=== PATIENT | female | born 1950 | race Caucasian/White ===

== ENCOUNTER → 2016-12-03 | Outpatient (CLI) | payer OTHER, BC ==
[~2016-12-03] MED LIST: ASPCH81X PO; CALCTAB5 PO; ESOM20CA PO; LEVO137T3 PO; OMEG10007 PO
--- NOTE | 2016-12-03 13:04 | MAMMOGRAPHY REPORT ---
BILATERAL DIGITAL SCREENING MAMMOGRAM WITH CAD: 12/03/2016 CLINICAL HISTORY: Routine screening. Patient has no complaints. TECHNIQUE: Current study was also evaluated with a Computer Aided Detection (CAD) system. Bilatera l CC and MLO views were obtained. COMPARISON: Comparison is made to exams dated: 09/26/2014 mammogram, 09/25/2013 mammogram, 09/23/2012 m ammogram, 09/22/2011 mammogram, 09/17/2010 mammogram, and 09/11/2009 mammogram - [facility] nt. BREAST COMPOSITION: There are scattered areas of fibroglandular density in both breasts. FINDINGS: No suspicious masses, calcifications, or areas of architectural distortion are noted in e ither breast. There has been no significant interval change compared to prior exams. IMPRESSION: ACR BI-RADS CATEGORY 1: NEGATIVE There is no mammographic evidence of malignancy. A 1 year screening mammogram is recommended. The p atient will receive written notification of the results. Approximately 10% of breast cancers are not detected with mammography. A negative mammographic repor t should not delay biopsy if a clinically suggestive mass is present. Martha Song M.D. /:12/03/2016 11:26:35 Product/Device Technologist: Zoë BAÑUELOS(Alejandra)(M), [facility] letter sent: Normal 1/2 BI-RADS Code: ACR BI-RADS Category 1: Negative
== END | disposition home or self-care (01) ==
LOC: C.MAMM 10:38
PROVIDERS: ATTEND Obstetrics & Gynecology
DX: Z12.31 Encounter for screening mammogram for malignant neoplasm of breast (principal)

== ENCOUNTER → 2017-02-22 | Outpatient (CLI) | payer OTHER, BC | END | disposition home or self-care (01) | LOC: C.PAPS 15:40 | PROVIDERS: ATTEND Obstetrics & Gynecology | DX: Z01.419 Encounter for gynecological examination (general) (routine) without abnormal findings (principal) ==

== ENCOUNTER → 2017-12-28 | Outpatient (CLI) | payer OTHER, BC ==
--- NOTE | 2017-12-29 15:23 | MAMMOGRAPHY REPORT ---
BILATERAL DIGITAL SCREENING MAMMOGRAM TOMOSYNTHESIS WITH CAD: 12/28/2017 CLINICAL HISTORY: Routine screening. Patient has no complaints. TECHNIQUE: Breast tomosynthesis in addition to standard 2D mammography was performed. Current study was also evaluated with a Computer Aided Detection (CAD) system. COMPARISON: Comparison is made to exams dated: 12/03/2016 mammogram, 10/01/2015 mammogram, 09/26/2014 m ammogram, 09/25/2013 mammogram, 09/23/2012 mammogram, and 09/22/2011 mammogram - [facility]. BREAST COMPOSITION: There are scattered areas of fibroglandular density in both breasts. FINDINGS: No suspicious mass, architectural distortion or cluster of microcalcifications is seen. T here are stable asymmetries in the lateral left breast and inferior right breast. IMPRESSION: ACR BI-RADS CATEGORY 1: NEGATIVE There is no mammographic evidence of malignancy. A 1 year screening mammogram is recommended. The pa tient will receive written notification of the results. Approximately 10% of breast cancers are not detected with mammography. A negative mammographic report should not delay biopsy if a clinically suggestive mass is present. Mirian Torres M.D. ay/:12/28/2017 16:09:24 Blasting Worker: Gi BAÑUELOS(Alejandra)(M), [facility] letter sent: Normal 1/2 BI-RADS Code: ACR BI-RADS Category 1: Negative
== END | disposition home or self-care (01) ==
LOC: C.MAMM 13:40
PROVIDERS: ATTEND Obstetrics & Gynecology
DX: Z12.31 Encounter for screening mammogram for malignant neoplasm of breast (principal)

== ENCOUNTER 2023-11-15 11:35 | Observation (INO) ==
--- NOTE | 2023-11-11 11:57 | Anesthesiology Consultation ---
Date of Service November 11, 2023 Assessment & Plan (1) Encounter for pre-operative examination: Chart Review Chart Review: Acceptable Risk for Surgery and Patient NOT seen in Pre Admission Testing Will order ECG stat on arrival. Consults Requested none History Surgery Operation Date: 11/15/23 13:00 Proposed Procedures p Right Proximal Humerus Open Reduction Internal Fixation - Raciel Amandeep Mehta MD Height/Weight Height: 5 ft 9.5 in Weight: 104.326 kg Allergies Allergy/AdvReac Type Severity Reaction Status Date / Time No Known Allergies Allergy Verified 11/11/23 10:04 Medications Home Medications Medication Instructions Recorded Confirmed Last Taken esomeprazole magnesium 20 mg 20 mg PO QAM 11/14/18 11/11/23 04/27/22 09:00 capsule,delayed release (Nexium 24HR) fluorouracil 0.5 % topical cream 1 applic topical UD PRN PER 03/11/20 11/11/23 11/04/20 (Carac) DERMATOLOGY tacrolimus 0.1 % topical ointment 1 applic topical UD PRN PSORIASIS 03/11/20 11/11/23 04/27/22 10:00 anastrozole 1 mg tablet 1 mg PO HS 10/20/22 11/11/23 Unknown naproxen sodium 220 mg capsule 220 mg PO BID PRN Pain 04/12/23 11/11/23 Unknown (Aleve) levothyroxine 137 mcg capsule 137 mcg PO QPM #90 caps 04/22/23 11/11/23 Unknown diphth,pertus(acell),tetanus 2.5 0.5 ml IM ONCE #0.5 mL 05/17/23 11/11/23 Unknown Lf unit-8 mcg-5 Lf/0.5mL IM syringe (Boostrix Tdap) multivitamin (Multiple Vitamins 1 tab PO QAM 05/17/23 11/11/23 Unknown tablet) pravastatin 10 mg tablet 10 mg PO HS #90 tabs 07/12/23 11/11/23 Unknown betamethasone dipropionate 0.05 % 1 applic topical BID PRN psoriasis 11/10/23 11/11/23 Unknown topical cream cholecalciferol (vitamin D3) 50 50 mcg PO QAM 11/10/23 11/11/23 Unknown mcg (2,000 unit) capsule (Vitamin D3) diphenhydramine 25 2 tab PO HS PRN Pain 11/10/23 11/11/23 Unknown mg-acetaminophen 500 mg tablet (Tylenol PM Extra Strength) Past Medical History Medical History Hx of squamous cell carcinoma Psoriasis 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 Daughter No problems noted. Other Family history of Prinzmetal angina No family history of adverse response to anesthesia Denies family history of Ovarian cancer Prostate cancer Diabetes Lung cancer Stroke Past Surgical History Surgical History Hx of squamous cell carcinoma excision left lower leg History of lumpectomy of left breast (04/28/22) + [place] Lymph Node Biopsy Dr. Leoncio Bland at [facility] History of breast biopsy (04/08/22) [facility] History of D&C History of cataract surgery bilat History of esophagogastroduodenoscopy (EGD) History of tooth extraction Hx of surgical procedure Excision of a right labial lesion > benign History of total left hip replacement H/O basal cell carcinoma excision from chest History of colonoscopy Colonoscopy 12/15/22, Repeat in 10 years 2032 Nausea and vomiting after administration of anesthetic agent History of tonsillectomy History of surgical procedure on mouth dental implants History of 2 sections History of cholecystectomy Social History Smoking Status: Never smoker Do You Dip or Chew Tobacco: No Hx Alcohol Use: Yes alcohol intake frequency: other Alcohol Intake Frequency Comment: once per month maybe Hx Substance Use: No substance use type: does not use Testing Laboratory Results Laboratory Tests 06/18/23 13:35 WBC 7.26 Hgb 12.6 Hct 38.2 Plt Count 257 Sodium 136 Potassium 4.5 Chloride 104 Carbon Dioxide 28 BUN 20 Creatinine 0.82 Glucose 101 H
[~2023-11-15 11:35] MED LIST changes: -ASPCH81X PO; +ATROPINE SULFATE 0.1 MG/ML 10ML SYR IV PRN; -CALCTAB5 PO; -ESOM20CA PO; +HYDROmorphone INJ 2 MG/ML SYR/VIAL IV PRN; -LEVO137T3 PO; +LIDOCAINE 2% 2 ML VIAL/AMP(20MG/ML) INFIL ONE; +MIDAZOLAM HCL 1 MG/ML 2ML VIAL ONE; -OMEG10007 PO; +ONDANSETRON INJ 2 MG/ML 2 ML VIAL IV PRN; +ONDANSETRON INJ 2 MG/ML 2 ML VIAL ONE; +PROPOFOL IV EMULSION 10 MG/ML 20 ML VIAL IV ONE; +ROCURONIUM BROMIDE 10 MG/ML 5 ML VIAL IV ONE; +ePHEDrine sulfate 50 MG/ML AMP IV PRN; +fentaNYL citrate PF 100 MCG/2 ML VIAL ONE
[2023-11-15] MEDS ORDERED: BUPIVACAINE 0.5 % 5 MG/1 ML PF 10ML VIAL ONE (12:11)
[2023-11-15] MEDS: LR 15ML/HR IV SCH (12:17)
--- NOTE | 2023-11-15 12:24 | Anesthesiology Consultation ---
Date of Service November 15, 2023 Assessment & Plan Chart Review Chart Review: Acceptable Risk for Surgery Consults Requested none ASA ASA3 Proposed Anesthesia Anesthesia Type: General Regional Laterality: Right Site: Interscalene Risk / Benefits Reviewed With: PT / POA / Parent / Guardian, Accepts Plan and Informed Consent Obtained History Surgery Operation Date: 11/15/23 13:00 Proposed Procedures p Right Proximal Humerus Open Reduction Internal Fixation - Raciel Amandeep Mehta MD Height/Weight Height: 5 ft 9.5 in Weight: 107.8 kg Allergies Allergy/AdvReac Type Severity Reaction Status Date / Time No Known Allergies Allergy Verified 11/15/23 12:02 Medications Home Medications Medication Instructions Recorded Confirmed Last Taken esomeprazole magnesium 20 mg 20 mg PO QAM 11/14/18 11/15/23 11/14/23 17:00 capsule,delayed release (Nexium 24HR) fluorouracil 0.5 % topical cream 1 applic topical UD PRN PER 03/11/20 11/15/23 11/04/20 ([facility]ac) DERMATOLOGY tacrolimus 0.1 % topical ointment 1 applic topical UD PRN PSORIASIS 03/11/20 11/15/23 11/14/23 21:00 anastrozole 1 mg tablet 1 mg PO HS 10/20/22 11/15/23 11/14/23 21:00 naproxen sodium 220 mg capsule 220 mg PO BID PRN Pain 04/12/23 11/15/23 Unknown (Aleve) levothyroxine 137 mcg capsule 137 mcg PO QPM #90 caps 04/22/23 11/15/23 11/14/23 21:00 diphth,pertus(acell),tetanus 2.5 0.5 ml IM ONCE #0.5 mL 05/17/23 11/11/23 Unknown Lf unit-8 mcg-5 Lf/0.5mL IM syringe (Boostrix Tdap) multivitamin (Multiple Vitamins 1 tab PO QAM 05/17/23 11/15/23 11/12/23 tablet) pravastatin 10 mg tablet 10 mg PO HS #90 tabs 07/12/23 11/15/23 11/14/23 21:00 betamethasone dipropionate 0.05 % 1 applic topical BID PRN psoriasis 11/10/23 11/15/23 11/15/23 07:00 topical cream cholecalciferol (vitamin D3) 50 50 mcg PO QAM 11/10/23 11/15/23 11/12/23 mcg (2,000 unit) capsule (Vitamin D3) diphenhydramine 25 2 tab PO HS PRN Pain 11/10/23 11/15/23 11/14/23 22:00 mg-acetaminophen 500 mg tablet (Tylenol PM Extra Strength) Active Medications Generic Name Dose Route Start Last Admin Trade Name Freq PRN Reason Stop Dose Admin Lactated Ringer's 1,000 mls @ 15 mls/hr 11/15/23 06:00 11/15/23 13:05 Lr IV 11/16/23 05:59 Infused .Q24H LANDEN Infusion NPO Date Last Intake of Fluids: 11/14/23 Time Last Intake of Fluids: 21:00 Date Last Intake of Solids: 11/14/23 Time Last Intake of Solids: 20:00 Past Medical History Medical History Hx of squamous cell carcinoma Psoriasis 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 Daughter No problems noted. Other Family history of Prinzmetal angina No family history of adverse response to anesthesia Denies family history of Ovarian cancer Prostate cancer Diabetes Lung cancer Stroke Past Surgical History Surgical History Hx of squamous cell carcinoma excision left lower leg History of lumpectomy of left breast (04/28/22) + [place] Lymph Node Biopsy Dr. Leoncio Bland at [facility] History of breast biopsy (04/08/22) [facility] History of D&C History of cataract surgery bilat History of esophagogastroduodenoscopy (EGD) History of tooth extraction Hx of surgical procedure Excision of a right labial lesion > benign History of total left hip replacement H/O basal cell carcinoma excision from chest History of colonoscopy Colonoscopy 12/15/22, Repeat in 10 years 2032 Nausea and vomiting after administration of anesthetic agent History of tonsillectomy History of surgical procedure on mouth dental implants History of 2 sections History of cholecystectomy Past Anesthesia History No Hx of Anesthesia Complications History of PONV No Hx of PONV Social History Smoking Status: Never smoker Do You Dip or Chew Tobacco: No Hx Alcohol Use: Yes alcohol intake frequency: other Alcohol Intake Frequency Comment: once per month maybe Hx Substance Use: No substance use type: does not use Physical Exam Vital Signs Last Vital Signs Temp 36.9 C 11/15/23 12:07 Pulse 65 11/15/23 12:07 Resp 20 11/15/23 12:07 BP 165/92 H 11/15/23 12:07 Pulse Ox 100 11/15/23 12:07 O2 Del Method Room Air 11/15/23 12:07 Constitutional no acute distress ENMT Thyromental Distance: > or= 3.5 Finger Breadths Mallampati Class: II Neck normal visual inspection Respiratory normal respiratory effort; no respiratory distress Auscultation: lungs clear to auscultation bilaterally Cardiovascular Rate/Rhythm: regular rate and regular rhythm Heart Sounds: no murmur Psychiatric Orientation: alert and oriented x 3 Testing Laboratory Results Blood Type O Positive 11/15/23 11:50 Antibody Screen NEGATIVE 11/15/23 11:50
--- NOTE | 2023-11-15 12:29 | History & Physical Bridge Note ---
Date of Service November 15, 2023 History & Physical Bridge Note I have examined the patient, reviewed the History & Physical and in the interval since the performance of the History & Physical I have noted the following changes of clinical significance: no changes noted
[2023-11-15] MEDS: ceFAZolin 2000MG 2,000 MG/15 ML SYR IV SCH ×3 (13:08→23:22)
[2023-11-15] MEDS ORDERED: DEXAMETHASONE SOD INJ 4 MG/ML VIAL ONE (13:33)
[2023-11-15] MEDS ORDERED: FAMOTIDINE/PF 20 MG/2 ML VIAL IV ONE (13:34)
[2023-11-15] MEDS ORDERED: PHENYLEPHRINE 100MCG/ML 10ML SYR IV ONE (14:00)
[2023-11-15] MEDS ORDERED: ePHEDrine sulfate 50 MG/5 ML SYR ONE ×2 (14:00→14:03)
[2023-11-15] MEDS: TRANEXAMIC ACID / 0.7% NACL 1000MG/100ML BAG IV ONE (14:31)
[2023-11-15] MEDS: TRANEXAMIC ACID 100 MG/ML 10 ML VIAL IV STA (14:38)
[2023-11-15] MEDS ORDERED: fentaNYL citrate PF 100 MCG/2 ML VIAL ONE ×2 (14:41→15:51)
[2023-11-15] MEDS ORDERED: ROCURONIUM BROMIDE 10 MG/ML 5 ML VIAL IV ONE (14:42)
[2023-11-15] MEDS ORDERED: SUGAMMADEX SODIUM 200 MG/2 ML VIAL IV ONE (16:48)
[2023-11-15] MEDS: BUPIVACAINE 0.5 % 5 MG/1 ML MPF 30ML VIAL ONE (16:49)
[2023-11-15] MEDS: LIDOCAINE 1%/EPINEPHRINE 1:100,000 20 ML VIAL ONE (16:49)
--- NOTE | 2023-11-15 17:08 | Post Operative Brief Note ---
Immediate Post Op Note v1 Date of Surgery November 15, 2023 Pre & Post Diagnosis Operation Date: 11/15/23 13:00 Pre-Op Diagnosis: Pright Proximal Humerus Fracture Post-Op Diagnosis: Pright Proximal Humerus Fracture I identified the patient and participated in the time-out.: Yes Procedure Operation Date: 11/15/23 13:00 Actual Procedures p Right Proximal Humerus Open Reduction Internal Fixation(Right) - Raciel Mehta MD Surgeon Raciel Mehta MD Inclusion Teacher A MD Tiffany Estimated Blood Loss 50 Findings Consistent with Post-Op Diagnosis Fluids 1500 cc Anesthesia Type General Regional Complications none
--- NOTE | 2023-11-15 17:10 | Operative Report ---
Post Operative Report Pre & Post Diagnosis Operation Date: 11/15/23 13:00 Pre-Op Diagnosis: Pright Proximal Humerus Fracture Post-Op Diagnosis: Pright Proximal Humerus Fracture I identified the patient and participated in the time-out.: Yes Procedure Operation Date: 11/15/23 13:00 Actual Procedures p Right Proximal Humerus Open Reduction Internal Fixation(Right) - Raciel Mehta MD Surgeon Raciel Mehta MD Pressurised Container Filler A MD Tiffany Estimated Blood Loss 50 Findings See Below Comminuted, displaced proximal humerus fracture Fluids 1500 cc Specimens n/a Anesthesia Type General Regional Complications none Indications The patient is a pleasant 73-year-old female, who fell fracturing their right proximal humerus. She failed conservative treatment as the fracture has displaced and surgical intervention were discussed. The risks of surgery include but not limited to: Infection, bleeding, nerve damage, need for repeat surgery, damage to nerves and arteries, mal-union, nonunion, decreased level of activity, deep vein thrombosis, heart attack, stroke, and . The patient wanted to proceed with surgery and the informed consent was signed. Description of Procedure IMPLANTS: 1) Standard 3 hole, 3.5 mm [place] Proximal Humerus Plate (Chubbies Shorts) 2) 3.5 mm Locking screws (26 x 3, 28 mm, 32, 38, 40 x 3, 45 mm). PROCEDURE: The patient was taken to the Operating Room and placed in the beach-chair position after administration of an interscalene block and general anesthesia. 2 g of intravenous Ancef were administered. The right shoulder was then prepped and draped in the standard sterile fashion. Sequential compression devices were placed in the legs. TXA 1 g was given pre-op and a second dose was given. The patient was identified and a multidisciplinary time-out identified the right shoulder as the correct shoulder and operative limb. First, the coracoid, acromion, clavicle, and planned deltopectoral incision were marked and then anesthetized with a 50:50 mixture of 1% lidocaine and 0.5% Marcaine with epinephrine. Sharp dissection was carried down to the deltopectoral interval. The cephalic vein was identified and protected laterally as was the deltoid. The deltopectoral interval was dissected to expose the clavipectoral fascia which was then incised. Blunt dissect was used to separate the deltoid from the humeral fracture fragments and rotator cuff. A Schuler retractor was placed beneath the deltoid muscle, exposing the fracture. The superior 1cm of the Pec major was released. The Tuberosities were tagged. The bursitis and hematoma were removed. The humeral shaft and humeral head were identified and freed up from each other. Any hematoma and callus were removed from the fracture ends with irrigation, rongeur, and dental pick. The wound was copiously irrigated. The humeral shaft fracture fragment was distracted while the humeral head was elevated and the humeral shaft was then internally rotated to reduce the proximal humeral fracture. Several k-wires were placed to provide temporary fixation. The Proximal Humerus plate was selected and held in place with a K wire. Fluoroscopy was brought in to ensure proper placement of the plate and near anatomic reduction. Once this was achieved, the screws were placed, starting with a 3.5 mm non-locking screw on the shaft in the oblong hole. The 3.5 locking screws were placed in 7 of the proximal portions of the plate, using fluoroscopy to ensure proper length screws into the humeral head. The 2 distal locking holes were also placed. The cortical screw was removed and replaced with a locking screw. The wounds were again copiously irrigated. The temporary k- wires were removed. The #1 Vicryl sutures used for tuberosities and traction on the humeral head fragment were placed through the holes along the edge of the plate and tied. Final x-rays were obtained. The wound was again copiously irrigated. The ROM of the shoulder had FF & abduction 160 degrees, ER 70 degrees, IR 40 degrees. The wound was copiously irrigated throughout the case. The deltopectoral interval was re-approximated with #1-Vicryl, the subcutaneous tissue was closed with 3-0 Vircyl, and the skin was closed with ZipLine and Shield. The wounds were dressed with sterile gauze, and Tegaderm. The patient was then transferred to the PACU in stable condition after application of a sling. POST-OP: The patient will be admitted overnight for observation. Patient will be seen by PT/OT and discharge planning. Pain medicine will be used as needed. Continue sling for comfort. I attest to the content of the Intraoperative Record and any orders documented therein. Any exceptions are noted below.
--- NOTE | 2023-11-15 17:41 | Operative Report ---
Post Operative Report Pre & Post Diagnosis Operation Date: 11/15/23 13:00 Pre-Op Diagnosis: Pright Proximal Humerus Fracture Post-Op Diagnosis: Pright Proximal Humerus Fracture I identified the patient and participated in the time-out.: Yes Procedure Operation Date: 11/15/23 13:00 Actual Procedures p Right Proximal Humerus Open Reduction Internal Fixation(Right) - Raciel Mehta MD Surgeon Raciel Mehta MD Locomotive Crane Operator Helper A MD Tiffany Estimated Blood Loss 50 Findings Consistent with Post-Op Diagnosis Same as postoperative diagnosis. Specimens None Description of Procedure Please see detailed operative note. I attest to the content of the Intraoperative Record and any orders documented therein. Any exceptions are noted below.
[2023-11-15] MEDS ORDERED: ePHEDrine sulfate 50 MG/ML AMP IV PRN (17:51)
[2023-11-15] MEDS ORDERED: ONDANSETRON INJ 2 MG/ML 2 ML VIAL IV PRN (17:53)
[2023-11-15] MEDS ORDERED: ATROPINE SULFATE 0.1 MG/ML 10ML SYR IV PRN (17:53)
[2023-11-15] MEDS: HYDROmorphone INJ 2 MG/ML SYR/VIAL IV PRN (18:00)
--- OUTSIDE RECORDS SUMMARY | 2023-11-15 18:55 | External Medical Summary | Continuity of Care Document ---
Author Name Unknown Organization [id number] Address [address] [place] [phone] Care Team Providers Care Business Continuity Management Director Name Role Phone ItzNhan lam Primary Care Physician [phone] [id number] Date(s): 11/10/23 - 11/10/23 [facility] [address] [facility] [address] [facility] [address] [place] [address] Encounter Diagnosis Proximal humerus fracture(Discharge Diagnosis) - 11/10/23 Discharge Disposition: Home or Self Care Attending Physician: MD Janine, Raciel A Allergies, Adverse Reactions, Alerts Substance Reaction Severity Status Pollen Active Immunizations Given and Recorded Vaccine Date Status Refusal Reason SARS-CoV-2 (COVID-19) mRNA-1273 vaccine 1 10/11/20 Recorded SARS-CoV-2 (COVID-19) mRNA-1273 vaccine 2 09/13/20 Recorded influenza virus vaccine, H1N1 3 07/24/09 Recorded hepatitis A adult vaccine 4 01/29/05 Recorded hepatitis A adult vaccine 5 07/17/04 Recorded tetanus toxoids-diphtheria, Td (Adult) 6 07/17/04 Recorded poliovirus vaccine, inactivated 7 07/17/04 Recorde d pneumococcal 23-valent vaccine 8 07/17/04 Recorded 1Result Comment: 2021-01-28: Historical information-source unspecified 2Result Comment: 2021-01-28: Historical information-source unspecified 3Result Comment: 2021-01-28: Historical information-source unspecified 4Result Comment: 2021-01-28: Historical information-source unspecified 5Result Comment: 2021-01-28: Historical information-source unspecified 6Result Comment: 2021-01-28: Historical information-source unspecified 7Result Comment: 2021-01-28: Historical information-source unspecified 8Result Comment: 2021-01-28: Historical information-source unspecified Medications anastrozole 1 mg oral tablet Start: 08/04/22 14:01:00 EST, 1 tab, PO, Daily Start Date: 08/04/22 Status: Ordered levothyroxine 137 mcg (0.137 mg) oral tablet Start: 04/11/13 13:26:00, 1 tab, PO, Daily Start Date: 04/11/13 Status: Ordered multivitamin Start: 04/11/13 13:27:00, 1 tab, PO, Daily Start Date: 04/11/13 Status: Ordered NexIUM Start: 10/15/15 11:04:00, 10 mg = Start Date: 10/15/15 Status: Ordered pravastatin 10 mg oral tablet Start: 06/14/20 12:52:00 EDT, 1 tab, PO, Daily Start Date: 06/14/20 Status: Ordered Vitamin D3 Start: 08/03/23 14:00:00 EST Start Date: 08/03/23 Status: Ordered Mental Status 11/10/23 Barriers to Learning one year None evide nt Mandatory Health Literacy Documentation Yes Health Literacy Communication Barriers N ever Primary Language Romansh Problem List Condition Confirmation Course Effective Dates Status Health St atus Informant Achilles tendonitis Confirmed Active Right Achilles tendinitis Confirmed Active Ankle pain Confirmed Active Arthritis of left hip Confirmed Active Humerus fracture 1 Confirmed Active Proximal humerus fracture Confirmed Active Heel pain Confirmed Active Pain in left hip Confirmed Active Status post total hip replacement, left Confirmed Active Ingrown left big toenail Confirmed Active Ingrown right big toenail Confirmed Active Preop examination Confirmed Active Plantar fasciitis, right Confirmed Active 1right Diagnosis Diagnosis Type Effective Dates Health Status Cl inical Service Informant Proximal humerus fracture Discharge Diagnosis 11/10/23 Procedures Procedure Date Related Diagnosis Body Site Status section Complete d Gallbladder Completed Vital Signs Most recent to oldest [Reference Range]: 1 Temperature [36.5-37.9 DegC] 36.5 DegC (11/10/23 10:54 AM) Heart Rate 70 bpm (11/10/23 10:54 AM) Blood Pressure 130/80mmHg (11/10/23 10:54 AM) Cuff Pulse Pressure 50 mmHg (11/10/23 10:54 AM) Social History Social History Type Response Smoking Status Never smoked cigaret pelon Sex Female Cardiology * Contributor_system, MUSE01: VERIFY, PERFORM Event Display: EKG Authored Date: Please click on link to see image. Ortho Outpt Note * MD Janine, Raciel A: MODIFY MD Janine, Raciel A: MODIFY, MODIFY, PERFORM Johnie Navarro: PERFORM Event Display: Ortho Outpt Note Authored Date: Name:DB KRUEGER Patient Number:[id number] :1950 Date of Service:11/10/2023 CHIEF COMPLAINT:Right arm f/u HPI: [id number] yearoldFebhavesh presents today forf/u of her humeral headfracture. She injured her humerus after tripping over and step, onto her kitchen floor.She has history of osteopenia. She has stage 0 breast cancer and lumpectomy. She had a DEXA scan done prior totaking anastrozole which showed osteopenia. She lives an active lifestyle and exercises frequently. Today she rats her pain a 4/10. PHYSICAL EXAM: Focusing on the patient's right upper extremity: 2+ radial pulse Sensation to light touch is intact distally Motor to the median, radial, ulnar, AIN, PIN, musculocutaneous nervesis intact. Minimal tenderness to palpation over the proximal humerus + Bruising in the upper arm RADIOGRAPHY: I reviewed x-rays taken 10/27/2023 , an AP and lateral of the right humerus which shows a surgical neck fracturethat isessentially non-displaced. There isgreater tuberosity fracture with <5 cm of displacement from the articular margin. I reviewed x-rays taken 11/04/2023, 3 views(2 AP, and a scapulary Y) of theright humerus which shows a surgical neck fracturethat isessentially non-displaced. There isgreater tuberosity fracture with <5 cm of displacement from the articular margin. One view shows slight progression of the angulationofthe neck fracture. The other 2 views show the fracture to beunchanged and impacted. The greater tuberosity fracture has improved alignment. I obtained and personally interpreted3 views (AP, Grashey, and scapular Y) of theright shoulderwhich shows a proximal humerus fracture that is displaced and an essentially non-displaced greater tuberosity fracture. IMPRESSION: 73 year old female with right 2 partproximal humerus fracture, surgical neck fracturewith increased displacement, greater tuberosity fracture,subsequent visit GOAL: Reduce pain PLAN: - I discussed with the patient that due to worsened alignment, there is a need to have surgical intervention for her right humerus fracture. I explained to the patient that I wish to have her fracture internally fixed rather than a reverse TSA done. I discussed with the patient the risks and benefits of the internal fixation as well as the risks and benefits of the reverse total shoulder. - The risks of surgery included but not limited to: malunion, Infection, bleeding, nerve damage, continued pain, progression of arthritis, stiffness, failure of the repair, failure of the hardware, and deep vein thrombosis. They would like to proceed with surgery and informed consent was signed amos open reduction and internal fixation Right proximal humerus. - I ordered a CT scan of the right humerus to further evaluate the bone condition. - They will speak with mysurgery medical scheduler and have a history and physical examination performed. - Patient should gain medical clearance for PCPand Oncologist to see if she can hold the anastrozole. - Ice shoulder as tolerated ATTESTATION: I, Johnie Navarro, scribing forand in the presence of, Raciel Mehta, on this date,11/10/2023 09:52:12. I, Dr. Mehta, saw and examined the patient with Johnie Navarro acting as my scribe. I reviewed thenote and agree with the documented findings and the plan of care I developed. Electronic Signature on File CC: Nir Thomas DO [facility] [address] [facility] [address] [facility] [address] * CC: Marion Segovia MD [facility] [address] [facility] [address] * CC: Jerrell Dias MD [address] [facility] [address] [facility] [address] * Electronically Reviewed/Signed by: Johnie Navarro Author Signature Dt/Tm:11/10/2023 10:55 AM Electronically Reviewed/Signed by: Johnie Navarro Cosigner Signature Dt/Tm: 11/10/2023 10:58 AM Electronically Reviewed/Signed by: Raciel A Bader, MD Cosigner Signature Dt/Tm: 11/10/2023 07:15 PM [facility] [employer] [facility] [address], [place] [address] DS Patient Care team information Care Team Personnel Name: MD Mobley Emil R Position: Referring Member Role: Primary Care Provider Address: Address: [address] [place] [address], [place] [address] [place] Care Team Related Persons Name: PHYLLIS KRUEGER Address: home [address] [place] [address], [place] [id number]
--- NOTE | 2023-11-15 19:19 | Fluoroscopy Report ---
FL humerus RT 2V CLINICAL HISTORY: Right proximal humerus ORIF TECHNIQUE: 3 views were obtained with the C-arm in the OR with the above procedure. Total fluoroscopy time was 21.6 seconds. Radiation dose was 1.87 mGy. Comparison: Comparison is made to shoulder radiograph 11/10/[address] shoulder 11/10/2023 FINDINGS/IMPRESSION: Intraoperative images were obtained of open reduction internal fixation of the h umeral fracture. Please correlate with intraoperative fluoroscopy and operative report. ACT 112: Negative or not required by law. Electronically signed by: Michael Call M.D. 11/15/2023 7:18 PM
--- NOTE | 2023-11-15 19:24 | Anesthesiology Progress Note ---
Date of Service November 15, 2023 Anesthesia Post Procedure Vital Signs Vital Signs: Temp Pulse Resp BP Pulse Ox O2 Del Method O2 Flow Rate 11/15/23 18:20 97.3 F L 87 15 142/67 H 99 Nasal Cannula 2 11/15/23 18:10 81 15 150/74 H 97 Oxymask 2 11/15/23 18:00 88 16 148/74 H 96 Oxymask 2 11/15/23 17:50 86 16 147/71 H 99 Oxymask 4 11/15/23 17:40 86 18 144/74 H 100 Oxymask 4 11/15/23 17:30 96.8 F L 93 H 14 134/73 96 Oxymask 6 11/15/23 12:07 98.4 F 65 20 165/92 H 100 Room Air Pain Intensity Right Shoulder: Pain Intensity: 3 Transfer of Care Handoff Completed per policy Notes Mental Status: alert / awake / arousable and participated in evaluation Patient Amnestic to Procedure: Yes Nausea / Vomiting: adequately controlled Pain: adequately controlled Airway Patency, RR, SpO2: stable & adequate BP & HR: stable & adequate Hydration State: stable & adequate Anesthetic Complications: no major complications apparent and Pt Satisfied with anesthetic care
[2023-11-15] MEDS ORDERED: HYDROmorphone INJ 1 MG/ML SYRINGE IV PRN (19:26)
[2023-11-15] MEDS ORDERED: NALOXONE HCL 0.4 MG/1 ML VIAL/CARP IV PRN (19:26)
[2023-11-15] MEDS ORDERED: bisacodyL 10 MG SUPP PR PRN (19:26)
[2023-11-15] MEDS ORDERED: MAGNESIUM HYDROXIDE SUSP 30 ML UDC PO PRN (19:26)
[2023-11-15] MEDS ORDERED: HYDROmorphone INJ 0.5 MG/0.5 ML SYR IV PRN (19:26)
[2023-11-15] MEDS: TRANEXAMIC ACID / 0.7% NACL 1,000 MG/100 ML BAG IV STA (19:28)
[2023-11-15] MEDS: SODIUM CHLORIDE 0.9% 1,000 ML IV SCH (19:30)
[2023-11-15] MEDS: ONDANSETRON INJ 2 MG/ML 2 ML VIAL IV PRN (19:49)
[2023-11-15] MEDS: KETOROLAC TROMETHAMINE 15 MG/ML VIAL IV SCH (20:05)
[2023-11-15] MEDS: ANASTROZOLE 1 MG TAB PO SCH (21:39)
[2023-11-15] MEDS: DOCUSATE SODIUM 100 MG CAP PO SCH (21:39)
[2023-11-15] MEDS: LEVOTHYROXINE SODIUM 137 MCG TABLET PO SCH (21:40)
[2023-11-15] MEDS: PRAVASTATIN SOD 10 MG TAB PO SCH (21:40)
[2023-11-15] MEDS: ACETAMINOPHEN 500 MG TAB PO SCH (21:40)
[2023-11-15] MEDS: SENNA 8.6 MG TAB PO SCH (21:41)
[2023-11-15] MEDS: METOCLOPRAMIDE HCL INJ 5 MG/ML 2 ML VIAL IV PRN (23:20)
[2023-11-15] MEDS: TRANEXAMIC ACID / 0.7% NACL 1,000 MG/100 ML BAG IV SCH (23:22)
[2023-11-16] MEDS ORDERED: ceFAZolin 2000MG 2,000 MG/15 ML SYR IV SCH (06:00)
[2023-11-16 06:56] LABS: Hematocrit (blood only) 31.1 % (37.0-47.0); Hemoglobin 9.9 g/dl (12.0-16.0); Mean Corpuscular Hemoglobin 29.5 pg (25.0-34.0); Mean Corpuscular Hgb Conc 31.8 g/dL (32.0-36.0); Mean Corpuscular Volume 92.6 fL (80.0-100.0); Mean Platelet Volume 10.2 fL (9.4-12.4); Platelet Count 252 K/uL (130-400); RDW Coefficient of Variation 13.5 % (11.5-14.5); RDW Standard Deviation 46.2 fL (36.4-46.3); Red Blood Count 3.36 M/uL (4.20-5.40); White Blood Count 12.65 K/ul (4.8-10.8)
[2023-11-16 07:45] LABS: BUN Creatinine Ratio 27.3 (10-20); Calcium 9.6 mg/dl (8.6-10.3); Creatinine Clr Calc Pharmacy 98.6 ml/min; Est GFR (African American) 100.9 ml/min; Potassium 4.5 mmol/L (3.5-5.1)
[2023-11-16] MEDS: PANTOprazole 40 MG TAB PO SCH (07:53)
[2023-11-16] MEDS: ASPIRIN 81 MG ECTAB PO SCH (07:53)
[2023-11-16] MEDS: FERROUS GLUCONATE 324 MG TAB PO SCH (07:53)
[2023-11-16] MEDS: CHOLECALCIFEROL 25 MCG (1000 UNITS) TAB PO SCH (07:53)
[2023-11-16] MEDS: MULTIVITAMIN TAB PO SCH (07:53)
[2023-11-16] MEDS: ASCORBIC ACID 500 MG TAB PO SCH (07:53)
--- NOTE | 2023-11-16 08:14 | Orthopedic Progress Note ---
Date of Service November 16, 2023 Assessment & Plan (1) Right humeral fracture: Plan: Postop day 1-status post open reduction internal fixation right proximal humerus fracture Home medications continued. PT and OT to start today. Sling right upper extremity for comfort. May remove sling for gentle range of motion exercises of hand, forearm, wrist and elbow. She can do pendulums and gentle active motion of the right shoulder. May be out of bed as tolerated with assistance. Aspirin 81 mg twice daily for DVT prophylaxis. KRISSY stockings and AV impulse boots while in-house. Dr. Mehta present for today's visit. Case management for disposition needs. Plan for discharge to home today if comfortable with pain in safe and PT and OT. Follow-up as scheduled on November 18, 2023 Admission and Anticipated Discharge Date Admission Date: November 15, 2023 Subjective Patient is sitting up in bed eating breakfast. Doing well. No complaints of significant pain in her right shoulder. She states she had a lot of nausea, lightheadedness and dizziness through the night but that has resolved. Denies any numbness or tingling in her right upper extremity. Physical Exam Musculoskeletal: Exam of her right upper extremity: Postoperative dressings are clean, dry and intact. No shadowing. Full range of motion of her fingers, wrist, elbow. Normal sensation throughout the right upper extremity. Distal pulses are 1+ and capillary fill is brisk. Results & Data Vital Signs (Past 12 Hours) Vital Signs Temp Pulse Resp BP Pulse Ox O2 Del Method 11/16/23 07:46 145/71 H 11/16/23 07:41 76 17 118/66 96 Room Air 11/16/23 07:16 36.8 C 73 17 88/59 L 98 Room Air 11/16/23 02:42 36.6 C 66 18 122/70 98 Room Air 11/15/23 23:00 36.6 C 82 18 114/65 98 Room Air 11/15/23 21:26 36.8 C 88 18 128/74 99 Room Air Laboratory Results 11/16/23 11/15/23 Range/Units 06:14 11:50 WBC 12.65 H (4.8-10.8) K/ul RBC 3.36 L (4.20-5.40) M/uL Hgb 9.9 L (12.0-16.0) g/dl Hct 31.1 L (37.0-47.0) % MCV 92.6 (80.0-100.0) fL MCH 29.5 (25.0-34.0) pg MCHC 31.8 L (32.0-36.0) g/dL RDW Std Deviation 46.2 (36.4-46.3) fL RDW Coeff of Carmelina 13.5 (11.5-14.5) % Plt Count 252 (130-400) K/uL MPV 10.2 (9.4-12.4) fL Sodium 138 (136-145) mmol/L Potassium 4.5 (3.5-5.1) mmol/L Chloride 107 (98-107) mmol/L Carbon Dioxide 26 (21-32) mmol/L Anion Gap 5 (3-11) BUN 18 (6-23) mg/dl Creatinine 0.66 (0.6-1.2) mg/dl Est Cr Clr Drug Dosing 98.6 ml/min Est GFR ( Amer) 100.9 ml/min Est GFR (Non-Af Amer) 87.0 ml/min BUN/Creatinine Ratio 27.3 H (10-20) Glucose 117 H (70-99(Fasting)) mg/dl Calcium 9.6 (8.6-10.3) mg/dl Blood Type O Positive Antibody Screen NEGATIVE (1) Right humeral fracture Encounter type: initial encounter Fracture alignment: displaced Fracture type: closed
[2023-11-16] MEDS: oxyCODONE HCL IR 5 MG TAB (IMMEDIATE RELEASE) PO PRN (22:00)
--- NOTE | 2023-11-17 09:58 | Orthopedic Progress Note ---
Date of Service November 17, 2023 Assessment & Plan (1) Right humeral fracture: Plan: Postop day 2-status post open reduction internal fixation right proximal humerus fracture Home medications continued. PT and OT to start today. Sling right upper extremity for comfort. May remove sling for gentle range of motion exercises of hand, forearm, wrist and elbow. She can do pendulums and gentle active motion of the right shoulder. May be out of bed as tolerated with assistance. Aspirin 81 mg twice daily for DVT prophylaxis. KRISSY stockings and AV impulse boots while in-house. Pain medication while prescribed Will discuss findings with Dr. Mehta Plan for discharge to home today. Follow-up as scheduled. Start outpatient therapy early next week. Keep Silverlon in place until your postoperative appointment. Call with any problems, questions or concerns. Patient understands and agrees with plan. Admission and Anticipated Discharge Date Admission Date: November 15, 2023 Subjective Patient is sitting up at the side of the bed. Doing well. States that she feels much better today. No nausea since yesterday. She has operative report r latisha oates in her patient chart, portal and is asking me to review it with her. Denies any numbness or tingling in her right upper extremity. She is ready to go home today. Physical Exam Musculoskeletal: Exam of right upper extremity: No distal edema. Mild ecchymosis into the lower medial aspect of the upper arm. Full range of motion of her fingers, wrist, forearm and elbow. No range of motion of the shoulder attempted today due to pain. Distal neurovascular function is normal. Capillary fill is brisk. Strength is 5/5. Incision is clean, dry and intact with intact Zipline. A Silverlon dressing was applied to the incision today. Her sling was readjusted for comfort. Results & Data Vital Signs (Past 12 Hours) Vital Signs Temp Pulse Pulse Resp BP Pulse Ox O2 Del Method 11/17/23 08:35 36.6 C 67 70 14 120/70 97 11/17/23 07:19 36.6 C 70 14 120/70 97 Room Air (1) Right humeral fracture Encounter type: initial encounter Fracture alignment: displaced Fracture type: closed
--- NOTE | 2023-11-17 11:36 | Discharge Summary ---
Date of Service November 17, 2023 Discharge Data Procedures Performed Operation Date: 11/15/23 13:00 Actual Procedures p Right Proximal Humerus Open Reduction Internal Fixation(Right) - Raciel Mehta MD Hospital Course (1) Closed fracture of right proximal humerus: Patient was kept in observation at [facility] after undergoing an open reduction internal fixation of her right proximal humerus fracture with Dr. Mehta on November 15, 2023. Her surgery was performed with general anesthesia and a peripheral nerve block. She tolerated the procedure well without any intraoperative complications. She was given 2 g of IV Ancef which was continued for 24 hours after surgery. She was also given 1 g of IV TXA preoperatively and then another gram intraoperatively for bleeding bleeding controlled. Postoperatively she was allowed out of bed, nonweightbearing right upper extremity. Allowed for full range of motion of her fingers, wrist, forearm, elbow and shoulder as tolerated. Advise no heavy pushing pulling or lifting. She can use her right arm for light daily activities and sling for comfort when out of bed. She was given Tylenol, oxycodone and IV Dilaudid to have available for postoperative pain. Her pain was well-controlled with oral Tylenol. She was given a regular diet. Her home medications were continued. She did develop some postoperative nausea which continued for about 36 hours after surgery. This required her to stay an extra night in the hospital. On postoperative day 2 her dressings were changed and a Silverlon was applied to the right shoulder. She has significant improvement with her nausea. She was safe out of bed. She was seen and evaluated by physical therapy and Occupational Therapy and they deemed her safe for discharge to her home. Discharge instructions were reviewed. All questions were answered. Follow-up as an outpatient has been scheduled. All questions were answered.
== END 2023-11-17 12:44 | disposition home or self-care (01) ==
LOC: ASU 11:35 → 3E 11:35